=== PATIENT | male | born 1945 | race Caucasian/White ===

== ENCOUNTER 2017-06-09 17:30 | Emergency (ER) | payer OTHER ==
--- NOTE | 2017-06-09 17:50 | PDOC ---
History of Present Illness - General History Source: Patient Exam Limitations: No Limitations - History of Present Illness Initial Comments: 06/09/17 18:10 The patient is a 72 year old male with a significant PMH of CAD (s/p SC, PCI, stents), blood thinner use (on Aspirin and Plavix), HTN, hyperlipidemia, and seizure disorder who presents to the emergency department with 2 episodes of nose bleed this morning and this afternoon. The patient reports bleeding from his left nostril this morning but was able to stop it and head to work. He reports blowing his nose in the afternoon and beginning to bleed again from his left nose. His reports using Hemablock to minimal relief. The patient denies chest pain, shortness of breath, headache and dizziness. Denies fever, chills, nausea, vomit, diarrhea and constipation. Denies dysuria, frequency, urgency and hematuria. Allergies: NKA Past surgical history: Cardiac stent placement. Social history: No reported cigarette, alcohol, or drug use. PCP: None reported. <Rafael José - Last Filed: 06/09/17 18:40> <Rojas Hooper - Last Filed: 06/09/17 19:16> - General Chief Complaint: Nasal Bleeding Stated Complaint: nose bleed from left nare Time Seen by Provider: 06/09/17 17:50 Past History <Rafael José - Last Filed: 06/09/17 18:40> - Past Medical History Cardiac Disorders: Yes (CAD) HTN: Yes Hypercholesterolemia: Yes Seizures: Yes - Surgical History Cardiac Surgery: Yes (stent) - Suicide/Smoking/Psychosocial Hx Smoking History: Never smoked Have you smoked in the past 12 months: No Hx Alcohol Use: No Drug/Substance Use Hx: No <Rojas Hooper - Last Filed: 06/09/17 19:16> - Past Medical History Allergies/Adverse Reactions: Allergies Allergy/AdvReac Type Severity Reaction Status Date / Time No Known Allergies Allergy Verified 06/09/17 17:31 Home Medications: Ambulatory Orders Aspirin [Aspirin EC] 81 mg PO HS 09/10/14 Clopidogrel Bisulfate [Clopidogrel] 75 mg PO DAILY 09/10/14 Lamotrigine [Lamictal] 300 mg PO AM 09/10/14 Ramipril [Altace] 20 mg PO DAILY 09/10/14 Rosuvastatin Calcium [Crestor] 20 mg PO HS 09/10/14 Lamotrigine [Lamictal] 200 mg PO HS 06/09/17 Review of Systems - Review of Systems Able to Perform ROS?: Yes Comments:: 06/09/17 18:10 A complete review of 10 out of 10 review of systems is taken and is negative apart from what is previously mentioned below and in the HPI. <Rafael José - Last Filed: 06/09/17 18:40> *Physical Exam - Vital Signs Last Vital Signs Temp Pulse Resp BP Pulse Ox 97.6 F 60 18 144/67 97 06/09/17 17:31 06/09/17 17:31 06/09/17 17:31 06/09/17 17:31 06/09/17 17:31 - Physical Exam Comments: 06/09/17 18:40 Vitals: Triage Vital signs reviewed General Appearance: no acute distress, well nourished well developed, Head: Atraumatic, normocephalic Eyes: Pupils equal reactive round, extraocular movement intact Ears: TM's normal bilaterally; Nose: (+) Bleeding from left nare. No blood in throat. Nares patent bilaterally; no nasal congestion Throat: Posterior oropharynx without erythema, mucous membranes moist, Neck: Supple;No Nuchal rigidity Chest Wall: Nontender Cardiac: Regular rate and rhythm, no murmurs, no rubs, no gallops, Lungs: Clear to auscultation bilateral, good air movement bilaterally, Abdomen: Soft, nondistended, normal bowel sounds, nontender to palpation Rectal: Exam deferred Extremities: Full range of motion to all extremities, no cyanosis, clubbing, or edema Skin: Warm and dry, no rashes or lesions, no petechiae Neuro: AOX3; Cranial Nerves 2-12 grossly intact, Strength intact to all extremities, Sensation intact to all extremities Psych: normal mood, normal affect <Rafael José - Last Filed: 06/09/17 18:40> Medical Decision Making - Medical Decision Making 06/09/17 18:32 Pt. is a 72 year old male with a PMH of CAD, SC, HTN, and hyperlipidemia who presents to the ED with nasal bleed beginning this morning. Meds: Afrin spray Apply Afrin and pressure. Re-evaluate in 20 minutes <Rafael José - Last Filed: 06/09/17 18:40> - Medical Decision Making Status post Afrin pressure and silver nitrate cautery of a small vessel along the septum of the left nostril good hemostasis of epistaxis patient observed an additional 20 minutes no additional bleeding noted Patient will follow-up with his ENT tomorrow return to the emergency department for any rebleeding Findings, the need for follow-up, strict return instructions discussed with patient. <Rojas Hooper - Last Filed: 06/09/17 19:16> *DC/Admit/Observation/Transfer - Attestations Scribe Attestion: 06/09/17 18:10 Documentation prepared by Rafael José, acting as director biomedical engineering for Rojas Hooper MD. <Rafael José - Last Filed: 06/09/17 18:40> - Discharge Dispostion Admit: No <Rojas Hooper - Last Filed: 06/09/17 19:16> Diagnosis at time of Disposition: Epistaxis - Discharge Dispostion Condition at time of disposition: Stable - Referrals Referrals: Alberto Cr MD [Staff Physician] - - Patient Instructions Printed Discharge Instructions: Nosebleed Additional Instructions: Do not cough do not blow nose to not rub or touch. If rebleeding occurs blow nose then Afrin as was applied here in the emergency department then apply pressure for 30 minutes if this does not stop bleeding return to the emergency department. Otherwise follow-up with your ENT or with Dr. Cr this week.
[2017-06-09 17:57] VITALS: BP 144/67; PULSE 60; TEMP 97.6; BMI 22.4
[2017-06-09] MEDS ORDERED: OXYMETAZOLINE 0.05% NASAL SOLUTION 15 ML BOTTLE NS ONE ×3 (18:09→19:08)
== END 2017-06-09 19:21 | disposition home or self-care (01) ==
LOC: FER 17:30
PROC: 0W3Q7ZZ Control Bleeding in Respiratory Tract, Via Natural or Artificial Opening (ICD-10-PCS; principal; 2017-06-09)
DX: R04.0 Epistaxis (principal); I25.10 Atherosclerotic heart disease of native coronary artery without angina pectoris; I10 Essential (primary) hypertension; E78.5 Hyperlipidemia, unspecified; Z79.01 Long term (current) use of anticoagulants
CPT/HCPCS: 99281-25

== ENCOUNTER 2018-11-13 21:33 | Emergency (ER) | payer OTHER ==
[2018-11-13] MEDS ORDERED: LIDOCAINE 2%/EPINEPHRINE 1:100000 (50 ML MD VIAL) INF ONE (21:43)
[2018-11-13] MEDS ORDERED: LIDOCAINE HCL 2% (20ML MULTI-DOSE VIAL) NR ONE (21:43)
[2018-11-13 21:48] VITALS: BP 140/70; PULSE 76; TEMP 98.3; BMI 23.1
--- NOTE | 2018-11-13 22:03 | PDOC ---
Documentation entered by Erich Hunt SCRIBE, acting as scribe for Yasmeen Alejo MD. Yasmeen Alejo MD: This documentation has been prepared by the Gilbert diaz Daniel, SCRIBE, under my direction and personally reviewed by me in its entirety. I confirm that the documentation accurately reflects all work, treatment, procedures, and medical decision making performed by me. History of Present Illness - General Chief Complaint: Injury Stated Complaint: HEAD LAC History Source: Patient Exam Limitations: No Limitations - History of Present Illness Initial Comments: 11/13/18 21:38 The patient is a 73 year old male with a past medical history of heart stent and seizure disorder here today for evaluation of right sided parietal laceration. The patient reports that he moving packages in preparation for a trip when he lost his balance and fell on his right side. He reports hitting his head on some wood trim which caused a laceration to his right parietal area. He denies any pain or loss of consciousness. Patient denies headache, lightheadedness. Denies fever, chills. Denies chest pain, shortness of breath. Denies nausea, vomiting, diarrhea, abdominal pain. Allergies: NKA Surgical history: bilateral TKR, bilateral hip replacements PCP: Juan Hyde Past History - Past Medical History Allergies/Adverse Reactions: Allergies Allergy/AdvReac Type Severity Reaction Status Date / Time No Known Allergies Allergy Verified 06/09/17 17:31 Home Medications: Ambulatory Orders Aspirin [Aspirin EC] 81 mg PO HS 09/10/14 Clopidogrel Bisulfate [Clopidogrel] 75 mg PO DAILY 09/10/14 Lamotrigine [Lamictal] 300 mg PO AM 09/10/14 Ramipril [Altace] 20 mg PO DAILY 09/10/14 Rosuvastatin Calcium [Crestor] 20 mg PO HS 09/10/14 Lamotrigine [Lamictal] 300 mg PO HS 06/09/17 Cardiac Disorders: Yes (CAD) COPD: No HTN: Yes Hypercholesterolemia: Yes Seizures: Yes - Surgical History Cardiac Surgery: Yes (stent) - Suicide/Smoking/Psychosocial Hx Smoking History: Never smoked Have you smoked in the past 12 months: No Hx Alcohol Use: No Drug/Substance Use Hx: No Substance Use Type: None Review of Systems - Review of Systems Able to Perform ROS?: Yes Comments:: 11/13/18 21:41 GENERAL/CONSTITUTIONAL: No fever or chills. No weakness. HEAD, EYES, EARS, NOSE AND THROAT: +laceration to right parietal area. No change in vision. No ear pain or discharge. No sore throat. CARDIOVASCULAR: No chest pain or shortness of breath. RESPIRATORY: No cough, wheezing, or hemoptysis. GASTROINTESTINAL: No nausea, vomiting, diarrhea or constipation. GENITOURINARY: No dysuria, frequency, or change in urination. MUSCULOSKELETAL: No joint or muscle swelling or pain. No neck or back pain. SKIN: No rash NEUROLOGIC: No headache, vertigo, loss of consciousness, or change in strength/ sensation. ENDOCRINE: No increased thirst. No abnormal weight change. HEMATOLOGIC/LYMPHATIC: No anemia, easy bleeding, or history of blood clots. ALLERGIC/IMMUNOLOGIC: No hives or skin allergy. *Physical Exam - Vital Signs Last Vital Signs Temp Pulse Resp BP Pulse Ox 98.3 F 76 16 140/70 98 11/13/18 21:34 11/13/18 21:34 11/13/18 21:34 11/13/18 21:34 11/13/18 21:34 - Physical Exam Comments: 11/13/18 21:42 GENERAL: The patient is in no acute distress. HEAD: +2 cm laceration to the right parietal area. EYES: PERRLA, EOMI, sclera non injected ENT: Moist mucous membranes. NECK: Normal range of motion, supple without midline tenderness LUNGS: Breath sounds equal, clear to auscultation bilaterally. HEART:Regular rate and rhythm, normal S1 and S2 ABDOMEN: Soft, nontender EXTREMITIES: Normal range of motion, chronic arthritic changes of the hands, no gross deformity NEUROLOGICAL: Cranial nerves II through XII grossly intact. Normal speech. No focal neurological deficits. MUSCULOSKELETAL: No deformities, no swelling no bruising noted SKIN: laceration as described above Procedures - Laceration/Wound Repair Right Head Wound Length: to 2.5 cm Wound Explored: clean Wound's Depth, Shape: superficial, linear Irrigated w/ Saline: Yes Betadine Prep: No Anesthesia: 2% Lidocaine Amount of Anesthetic (ccs): 2 Wound Debrided: NO Wound Repaired With: Rodo Medical Decision Making - Medical Decision Making 11/13/18 22:01 73 yo M presenting with a scalp laceration s/p hitting his head on the edge of his home's siding No LOC No Amnesia no complaints of pain in any other part of the body scalp repaired with 4 rodo Pt would like to forego CT as he states this was a minor injury I have asked his to monitor for any changes in mental status Boostrix last given 1 year ago Rodo placed clinical impression: scalp laceration, initial presentation 11/14/18 00:30 *DC/Admit/Observation/Transfer Diagnosis at time of Disposition: Scalp laceration Qualifiers: Encounter type: initial encounter Qualified Code(s): S01.01XA - Laceration without foreign body of scalp, initial encounter - Discharge Dispostion Disposition: HOME Condition at time of disposition: Stable Decision to Admit order: No - Referrals Referrals: Juan Hyde [Primary Care Provider] - - Patient Instructions Printed Discharge Instructions: DI for Laceration Repair -- Rodo, DI for Laceration Repair of the Scalp Additional Instructions: Mr Reyna Thanks for coming in to the ER Please avoid getting your head soaking wet for 48 hours You can shower/rinse your scalp in 24 hours Although we have washed the laceration, please keep an eye out for swelling, drainage or redness (which could indicate an infection) If you see this, please come back to the ER Please remove rodo in 7-10 days you can either come back here or see your pmd Return to the ER for any other concerns or complaints - Post Discharge Activity
== END 2018-11-13 22:03 | disposition home or self-care (01) ==
LOC: FER 21:33
PROC: 0HQ0XZZ Repair Scalp Skin, External Approach (ICD-10-PCS; principal; 2018-11-13)
DX: S01.01XA Laceration without foreign body of scalp, initial encounter (principal); W01.198A Fall on same level from slipping, tripping and stumbling with subsequent striking against other object, initial encounter; Y93.89 Activity, other specified; Y92.9 Unspecified place or not applicable; I10 Essential (primary) hypertension; G40.909 Epilepsy, unspecified, not intractable, without status epilepticus; I25.10 Atherosclerotic heart disease of native coronary artery without angina pectoris; E78.00 Pure hypercholesterolemia, unspecified; Z95.5 Presence of coronary angioplasty implant and graft
CPT/HCPCS: 12001-25; 99281-25